=== PATIENT | male | born 1965 | race Hispanic/Latino ===

== ENCOUNTER 2019-02-14 11:55 | Outpatient (CLI) | payer OTHER ==
--- NOTE | 2019-02-14 13:47 | Cat Scan Report ---
CT CHEST WITH CONTRAST: HISTORY: Chronic cough, wheezing. COMPARISON: none. TECHNIQUE: Helical CT in 1.25mm intervals following IV contrast. Sagittal and coronal reformatted images. FINDINGS: Thyroid gland: Normal. Tracheobronchial tree: Normal. Esophagus: Normal. Heart: Normal. Pericardium: Normal. Mediastinum: Normal. Lung Lacy: Normal. Pleural Spaces: Normal. Musculoskeletal: Intact. Mild multilevel thoracic spondylosis is noted. Comment: A 2.9 cm hypodense left adrenal lesion is identified which probably represents an adrenal adenoma. Noncontrast CT of the abdomen or MR abdomen adrenal protocol could be obtained if further evaluation is needed. IMPRESSION: Unremarkable CT chest with contrast. Left adrenal adenoma.
[2019-02-14] MEDS ORDERED: PROVENTIL IH ONE (14:14)
--- NOTE | 2019-02-18 21:01 | Pulmonary Function Test ---
REFERRING PHYSICIAN: Rashard Sanabria MD INTERPRETATION: Spirometry, forced vital capacity is mildly reduced, below predicted values for age and height (3.88 liters). One-second forced expiratory volume (FEV1) moderately reduced (2.46 liters). Flow-volume loop shows obstructive-type pattern. FEV1/FVC ratio reduced. Maximum voluntary ventilation is normal. Lung volumes obtained by plethysmography shows slight increase in residual volume, normal thoracic gas volumes. Single breath diffusion of carbon monoxide normal. Bronchodilator: There is 400 mL increase in FEV1 following bronchodilator. Oximetry: Resting room air 97%. IMPRESSION: Mild airflow obstruction, some reversibility. Normal diffusion. JOB# [id number]/JENNIFER
== END 2019-02-14 11:56 | disposition home or self-care (01) ==
LOC: CT 11:55
PROVIDERS: ATTEND Internal Medicine
DX: D35.02 Benign neoplasm of left adrenal gland (principal); R06.02 Shortness of breath
CPT/HCPCS: 71260; 94060; 94640; 94726; 94729; Q9967